=== PATIENT | female | born 2000 | race Caucasian/White ===

== ENCOUNTER 2019-08-18 15:25 | Emergency (ER) | payer BC ==
[2019-08-18 16:17] VITALS: BP 123/75
--- NOTE | 2019-08-18 16:28 | UC ---
Knee Pain HPI - HPI Summary HPI Summary: C/O right knee pain x 3 weeks. Stiffness. No injury. No fevers/ sweats chills - History of Current Complaint Chief Complaint: UCLowerExtremity Stated Complaint: RIGHT KNEE PAIN Hx Obtained From: Patient Hx Last Menstrual Period: 08/13/19 ?: No Onset/Duration: Gradual Onset, Lasting Weeks - 3, Still Present Severity Initially: Mild Severity Currently: Moderate Pain Intensity: 3 Character: Dull, Aching, Stiffness Aggravating Factor(s): Weight Bearing, Prolonged Standing, Stairs Alleviating Factor(s): Rest, Position Associated Signs And Symptoms: Positive: Swelling. Negative: Bruising, Fever, Weakness Able to Bear Weight: Yes - Allergies/Home Medications Allergies/Adverse Reactions: Allergies Allergy/AdvReac Type Severity Reaction Status Date / Time amoxicillin Allergy Swelling Verified 08/18/19 16:18 Of Face,Lips,& Throat Home Medications: Home Medications Zonisamide 25 mg PO DAILY 08/18/19 [History Confirmed 08/18/19] hydrOXYzine HCL TAB* [Atarax 25 MG TAB*] 25 mg PO BEDTIME 08/18/19 [History Confirmed 08/18/19] PMH/Surg Hx/FS Hx/Imm Hx Other Endocrine History: hives - Surgical History Surgical History: Yes Surgery Procedure, Year, and Place: right ankle surgery - Family History Known Family History: Positive: Other - Father rheumatoid arthritis - Social History Occupation: Employed Full-time Lives: With Family Alcohol Use: Rare Substance Use Type: None Smoking Status (MU): Never Smoked Tobacco Review of Systems All Other Systems Reviewed And Are Negative: Yes Constitutional: Positive: Fatigue Musculoskeletal: Positive: Arthralgia - right knee Physical Exam Triage Information Reviewed: Yes Appearance: Well-Appearing, No Pain Distress, Obese Vital Signs: Initial Vital Signs Temp 98.1 F 08/18/19 16:12 Pulse 72 08/18/19 16:12 Resp 16 08/18/19 16:12 BP 123/75 08/18/19 16:12 Pulse Ox 100 08/18/19 16:12 Vital Signs Reviewed: Yes Eyes: Positive: Conjunctiva Clear Neck exam: Normal Respiratory Exam: Normal Cardiovascular Exam: Normal Musculoskeletal: Positive: ROM Limited @ - right knee flexion, Other: - Right knee warm and swollen c/w left knee Neurological Exam: Normal Psychological Exam: Normal Skin Exam: Normal Knee Pain Course/Dx - Course Course Of Treatment: Discussed with patient, inflammed knee. R/O lyme vs inflammatory arthritis. - Differential Dx/Diagnosis Differential Diagnosis/HQI/PQRI: Cellulitis, Contusion, Sprain Provider Diagnosis: Right knee pain Discharge ED - Sign-Out/Discharge Documenting (check all that apply): Patient Departure All imaging exams completed and their final reports reviewed: No Studies - Discharge Plan Condition: Stable Disposition: HOME Patient Education Materials: Swollen Knee Joint (ED) Referrals: Kingsley Lozano DO [Primary Care Provider] - 4 Days (follow up with blood work. Consider rheumatology referral) - Billing Disposition and Condition Condition: STABLE Disposition: Home
[2019-08-20 20:54] LABS: Cyclic Citrullinated Peptide <15.6 U
--- NOTE | 2019-08-21 10:26 | UC ---
- Progress Note Progress Note: Anti-nuclear antibody from August 18, 2019 comes back is weakly positive at 2.1. Negative is less than 1.1. Patient was seen for a swollen painful knee. Patient call patient inform them of the results. Patient should follow-up with her primary care doctor as planned. Course/Dx - Diagnoses Provider Diagnoses: Right knee pain Discharge ED - Sign-Out/Discharge Documenting (check all that apply): Patient Departure All imaging exams completed and their final reports reviewed: No Studies - Discharge Plan Condition: Stable Disposition: HOME Patient Education Materials: Swollen Knee Joint (ED) Referrals: Kingsley Lozano DO [Primary Care Provider] - 4 Days (follow up with blood work. Consider rheumatology referral) - Billing Disposition and Condition Condition: STABLE Disposition: Home
== END 2019-08-18 16:53 | disposition home or self-care (01) ==
LOC: UCCORT 15:25
DX: M25.561 Pain in right knee (principal); R53.83 Other fatigue; Z88.0 Allergy status to penicillin
CPT/HCPCS: 36415; 86038; 86200; 86618; 99201; G0463